=== PATIENT | female | born 1945 | race Caucasian/White ===

== ENCOUNTER 2023-01-31 06:00 | Day surgery (SDC) | payer OTHER ==
[~2023-01-31] VITALS: Ht 157.5 cm; Wt 88.0 kg
[2023-01-31] MEDS ORDERED: CEFAZOLIN SOD 1 GM in D5W 50 ML IV ONE (06:30)
[2023-01-31 07:59] LABS: ANION GAP 11 (5-15); CALCIUM 9.2 mg/dL (8.4-11.0); CHLORIDE 104 mmol/L (98-107); CREATININE 0.95 mg/dL (0.55-1.30); GLUCOSE 199 mg/dL (70-99); UREA NITROGEN, BLOOD 34 mg/dL (8-21)
[2023-01-31] MEDS ORDERED: HEPARIN SODIUM,PORCINE 10,000 UNIT/ML VIAL ONE (08:10)
[2023-01-31] MEDS ORDERED: fentaNYL CITRATE/PF 100 MCG/2 ML AMP ONE (08:10)
[2023-01-31] MEDS ORDERED: METOCLOPRAMIDE HCL 10 MG/2 ML VIAL ONE (08:10)
[2023-01-31] MEDS ORDERED: DEXAMETHASONE SOD PHOSPHATE 4 MG/ML VIAL ONE (08:10)
[2023-01-31] MEDS ORDERED: NS IRRIG SOLN 1000 ML IR ONE (08:10)
[2023-01-31] MEDS ORDERED: BUPIVACAINE /PF 0.25% 30 ML VIAL INJ ONE (08:10)
[2023-01-31] MEDS ORDERED: PROPOFOL 200MG/ 20ML VIAL (DIPRIVAN) IV ONE (08:10)
[2023-01-31] MEDS ORDERED: WATER FOR IRRIGATION,STERILE 1,000 ML IRRIG.SOLN IR ONE (08:10)
[2023-01-31] MEDS ORDERED: ONDANSETRON HCL 4 MG/2 ML VIAL ONE (08:10)
[2023-01-31] MEDS ORDERED: NS 1000 ML IV.SOLN IV ONE (08:10)
[2023-01-31] MEDS ORDERED: DESFLURANE 15 MIN GAS INH ONE (08:10)
[2023-01-31] MEDS ORDERED: ACETAMINOPHEN I.V. 1000 MG 100 ML IV ONE (08:23)
[2023-01-31] MEDS ORDERED: ONDANSETRON HCL 4 MG/2 ML VIAL IVP PRN (08:30)
[2023-01-31] MEDS ORDERED: HYDROmorphone 1 MG/ML INJ. CARTRIDGE IVP PRN ×2 (08:30)
[2023-01-31] MEDS ORDERED: D5/0.45 NS 1,000 ML IV SCH (09:30)
[2023-01-31 12:49] VITALS: BP_SYST 142
== END 2023-01-31 11:37 | disposition home or self-care (01) ==
LOC: SDS 06:00 → SMU 06:00 → SDS 11:37
PROVIDERS: ATTEND Colon & Rectal Surgery
DX: D64.9 Anemia, unspecified (principal); C50.411 Malignant neoplasm of upper-outer quadrant of right female breast; E11.51 Type 2 diabetes mellitus with diabetic peripheral angiopathy without gangrene; Z88.1 Allergy status to other antibiotic agents; Z80.8 Family history of malignant neoplasm of other organs or systems; Z87.891 Personal history of nicotine dependence; Z90.49 Acquired absence of other specified parts of digestive tract; Z79.899 Other long term (current) drug therapy; Z20.822 Contact with and (suspected) exposure to COVID-19
CPT/HCPCS: 36415; 71045; 76000; 80048; 82962; 87081; C1788; J0131; J0690; J1100; J1644; J2405; J2704; J2765; J3010; J3490; J7030; J7060